=== PATIENT | female | born 1945 | race Caucasian/White ===

== ENCOUNTER 2020-09-22 06:50 | Day surgery (SDC) | payer MEDICARE, OTHER ==
[~2020-09-22 06:50] MED LIST: Lactated Ringers 1,000 ML IV PRN; Sodium Chloride 0.9% 10 ML Syringe FLUSH PRN
[2020-09-22] MEDS ORDERED: fentaNYL 100 MCG/2 ML SDV IV ONE (06:51)
[2020-09-22] MEDS ORDERED: Midazolam 1 MG/ML 2 ML SDV IV ONE (06:51)
[2020-09-22] MEDS ORDERED: acetaZOLAMIDE 500 MG Cap.ER PO ONE (09:00)
--- NOTE | 2020-09-22 14:21 | OR ---
DATE OF OPERATION: 09/22/2020 SURGEON: Pam Jefferson MD PREOPERATIVE DIAGNOSIS: Visually significant cataract, right eye. POSTOPERATIVE DIAGNOSIS: Visually significant cataract, right eye. PROCEDURES PERFORMED: Phacoemulsification with intraocular lens placement, right eye. ASSISTANTS: None. ANESTHESIA: Local with sedation. COMPLICATIONS: None. BLOOD LOSS: None. IMPLANTS: An Bowen ACU0T0, 16.0 diopter lens, serial number [id number] implanted. CDE: 15.91. DESCRIPTION OF PROCEDURE: After risks and benefits were reviewed with the patient, consent was obtained in the preoperative area, and the operative eye was marked with a surgical pen. In the preoperative area, a pledget was used to dilate the pupil consisting of a mixture of phenylephrine 10%, cyclopentolate 2%, moxifloxacin 0.5%, and bupivacaine 0.75%. The patient was taken to the operating room, where a time-out was performed, and the patient was placed under monitored anesthesia care. Topical tetracaine was used for anesthesia. The operative eye was prepped and draped for ophthalmic surgery, and the microscope was brought into position and focused. A paracentesis incision was made, followed by injection of preservative-free 1% lidocaine into the anterior chamber, followed by injection of Viscoat into the anterior chamber. A microkeratome blade was used to make a corneal limbal incision temporally. A cystotome was used to make the beginning of the capsulorrhexis, which was carried around 360 degrees in a curvilinear fashion using Utrata forceps. A Gonzalez cannula with BSS was used to hydrodissect and hydrodelineate the nucleus. The nucleus was removed in a divide and conquer manner using phacoemulsification. Irrigation and aspiration were used to remove the remaining cortical material. Provisc was used to inflate the capsular bag, and a pre-loaded Bowen ACU0T0, 16.0 diopter lens, serial number [id number] was injected into the capsular bag. A Sinskey hook was used to position and center the lens. Next, irrigation and aspiration was used to remove any remaining viscoelastic and cortical material from the anterior chamber. BSS on a cannula was used to inflate the anterior chamber and hydrate the wound. The wound was checked and found to be watertight. 1 mg of Moxifloxacin was injected into the anterior chamber. Drapes were removed and the eye was cleaned. A drop of brimonidine 0.2% and a drop of TobraDex was placed. The eye was shielded, and the patient was taken to the recovery room in stable condition. /[id number] KRISTY/MEÑO
== END 2020-09-22 09:35 | disposition home or self-care (01) ==
LOC: FB.SDS 06:50
PROVIDERS: ATTEND Ophthalmology
DX: H25.13 Age-related nuclear cataract, bilateral (principal); H02.831 Dermatochalasis of right upper eyelid; H02.834 Dermatochalasis of left upper eyelid; H02.88A Meibomian gland dysfunction right eye, upper and lower eyelids; H02.88B Meibomian gland dysfunction left eye, upper and lower eyelids; H52.13 Myopia, bilateral; K21.9 Gastro-esophageal reflux disease without esophagitis; Z90.49 Acquired absence of other specified parts of digestive tract; Z79.899 Other long term (current) drug therapy; Z98.890 Other specified postprocedural states; Z79.82 Long term (current) use of aspirin
CPT/HCPCS: 00142-QZ; A9270-GY; J2250; J3010; V2632

== ENCOUNTER 2020-10-06 06:58 | Day surgery (SDC) | payer MEDICARE, OTHER ==
[2020-10-06] MEDS ORDERED: fentaNYL 100 MCG/2 ML SDV IV ONE (06:59)
[2020-10-06] MEDS ORDERED: Midazolam 1 MG/ML 2 ML SDV IV ONE (06:59)
[2020-10-06] MEDS ORDERED: Lactated Ringers 1,000 ML IV PRN (07:30)
[2020-10-06] MEDS ORDERED: Sodium Chloride 0.9% 10 ML Syringe FLUSH PRN (07:30)
[2020-10-06] MEDS ORDERED: acetaZOLAMIDE 500 MG Cap.ER PO ONE (09:30)
--- NOTE | 2020-10-06 10:40 | OR ---
DATE OF OPERATION: 10/06/2020 SURGEON: Pam Jefferson MD PREOPERATIVE DIAGNOSIS: Visually significant cataract, left eye. POSTOPERATIVE DIAGNOSIS: Visually significant cataract, left eye. PROCEDURES PERFORMED: Phacoemulsification with intraocular lens placement, left eye. ASSISTANTS: None. ANESTHESIA: Local with sedation. COMPLICATIONS: None. BLOOD LOSS: None. IMPLANTS: Bowen ACU0T0, 17.0 diopter lens, serial number [id number] implanted. CDE: 9.74. DESCRIPTION OF PROCEDURE: After risks and benefits were reviewed with the patient, consent was obtained in the preoperative area, and the operative eye was marked with a surgical pen. In the preoperative area, a pledget was used to dilate the pupil consisting of a mixture of phenylephrine 10%, cyclopentolate 2%, moxifloxacin 0.5%, and bupivacaine 0.75%. The patient was taken to the operating room, where a time-out was performed, and the patient was placed under monitored anesthesia care. Topical tetracaine was used for anesthesia. The operative eye was prepped and draped for ophthalmic surgery, and the microscope was brought into position and focused. A paracentesis incision was made, followed by injection of preservative-free 1% lidocaine into the anterior chamber, followed by injection of Viscoat into the anterior chamber. A microkeratome blade was used to make a corneal limbal incision temporally. A cystotome was used to make the beginning of the capsulorrhexis, which was carried around 360 degrees in a curvilinear fashion using Utrata forceps. A Gonzalez cannula with BSS was used to hydrodissect and hydrodelineate the nucleus. The nucleus was removed in a divide and conquer manner using phacoemulsification. Irrigation and aspiration were used to remove the remaining cortical material. Provisc was used to inflate the capsular bag, and a pre-loaded Bowen ACU0T0, 17.0 diopter lens, serial number [id number] was injected into the capsular bag. A Sinskey hook was used to position and center the lens. Next, irrigation and aspiration was used to remove any remaining viscoelastic and cortical material from the anterior chamber. BSS on a cannula was used to inflate the anterior chamber and hydrate the wound. The wound was checked and found to be watertight. 1 mg of Moxifloxacin was injected into the anterior chamber. Drapes were removed and the eye was cleaned. A drop of brimonidine 0.2% and a drop of TobraDex was placed. The eye was shielded, and the patient was taken to the recovery room in stable condition. /[id number] KRISTY/MEÑO
== END 2020-10-06 10:15 | disposition home or self-care (01) ==
LOC: FB.SDS 06:58
PROVIDERS: ATTEND Ophthalmology
DX: H25.13 Age-related nuclear cataract, bilateral (principal); H02.831 Dermatochalasis of right upper eyelid; H02.834 Dermatochalasis of left upper eyelid; H02.88A Meibomian gland dysfunction right eye, upper and lower eyelids; H02.88B Meibomian gland dysfunction left eye, upper and lower eyelids; H52.13 Myopia, bilateral; K21.9 Gastro-esophageal reflux disease without esophagitis; Z90.49 Acquired absence of other specified parts of digestive tract; Z98.890 Other specified postprocedural states; Z79.899 Other long term (current) drug therapy; Z79.82 Long term (current) use of aspirin
CPT/HCPCS: 00142-QZ; A9270-GY; J2250; J3010; V2632

== ENCOUNTER 2021-02-02 13:56 | Emergency (ER) | payer MEDICARE, OTHER ==
--- NOTE | 2021-02-02 14:55 | EDM.PDOC ---
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, he does shoe repair - Related Data Allergies Allergy/AdvReac Type Severity Reaction Status Date / Time No Known Allergies Allergy Verified 10/06/20 07:38 Home Meds: Home Meds Ascorbate Calcium [Vitamin C] 500 mg PO DAILY 09/21/20 [History] Aspirin [Adult Low Dose Aspirin EC] 81 mg PO DAILY 09/21/20 [History] Glucos Sul 2Kcl/MSM/Chond/C/Mn [Glucosamine Chondroitin Cap] 1 each PO DAILY 09/21/20 [History] Multivitamin with Minerals [Multiple Vitamin] 1 tab PO DAILY 09/21/20 [History] [place]-3/DHA/Epa/Fish Oil [[place]-3 Fish Oil 1,000 MG Sfgl] 1,000 mg PO DAILY 09/21/20 [History] Omeprazole 20 mg PO ACBREAKFAST 09/21/20 [History] traMADol HCl [Tramadol HCl] 100 mg PO Q6H PRN #12 tablet 02/02/21 [Rx] Past Medical History HEENT History: Reports: Cataract, Impaired Vision Cardiovascular History: Reports: None Respiratory History: Reports: None Gastrointestinal History: Reports: GERD Genitourinary History: Reports: Urinary Incontinence Musculoskeletal History: Reports: Osteoarthritis Neurological History: Reports: None Psychiatric History: Reports: None Endocrine/Metabolic History: Reports: None Hematologic History: Reports: None Immunologic History: Reports: None Oncologic (Cancer) History: Reports: None Dermatologic History: Reports: None - Past Surgical History HEENT Surgical History: Reports: Cataract Surgery GI Surgical History: Reports: Appendectomy Female Surgical History: Reports: Breast Biopsy Social & Family History - Caffeine Use Caffeine Use: Reports: Coffee, Soda Review of Systems - Review of Systems Review Of Systems: See Below Constitutional: Reports: No Symptoms Eyes: Reports: No Symptoms Ears: Reports: No Symptoms Nose: Reports: No Symptoms Mouth/Throat: Reports: No Symptoms Respiratory: Reports: No Symptoms Cardiovascular: Reports: No Symptoms GI/Abdominal: Reports: No Symptoms Genitourinary: Reports: No Symptoms Musculoskeletal: Reports: Shoulder Pain Skin: Reports: No Symptoms Neurological: Reports: No Symptoms Psychiatric: Reports: No Symptoms ED EXAM, GENERAL - Physical Exam Exam: See Below Exam Limited By: No Limitations General Appearance: Alert, WD/WN, No Apparent Distress, Other (pleasant, alert) Eye Exam: Bilateral Eye: EOMI, PERRL Ears: Hearing Grossly Normal Throat/Mouth: Normal Inspection Head: Atraumatic, Normocephalic Neck: Normal Inspection, Supple, Non-Tender Respiratory/Chest: No Respiratory Distress, Lungs Clear Cardiovascular: Regular Rate, Rhythm, No Murmur Extremities: Other (L shoulder rotated forward, no abrasion/swell/ecchymosis, 1- 2+ tender over clavicle, nontender at GH joint line or humeral head) Course - Orders/Labs/Meds Orders: Active Orders 24 hr Category Date Time Status Shoulder Comp Lt [CR] Stat Exams 02/02/21 14:03 Taken - Re-Assessments/Exams Free Text/Narrative Re-Assessment/Exam: 02/02/21 15:01 XR L shoulder on prelim ED view with fx of distal clavicle in 2 pieces with shortening and overlap bone, no dislocation, no AC separation Departure - Departure Time of Disposition: 14:49 Disposition: Home, Self-Care 01 Condition: Good Clinical Impression: Fracture of left clavicle - Discharge Information *PRESCRIPTION DRUG MONITORING PROGRAM REVIEWED*: Not Applicable *COPY OF PRESCRIPTION DRUG MONITORING REPORT IN PATIENT DANIEL: Not Applicable Prescriptions: traMADol HCl [Tramadol HCl] 100 mg PO Q6H PRN #12 tablet PRN Reason: Pain Instructions: Clavicle Fracture, Clavicle Fracture Rehab-SportsMed Additional Instructions: Take ibuprofen 200 mg 2 tabs and acetaminophen 500 mg 2 tabs 4 times a day for 2 days, longer if needed. Take tramadol 100 mg 1 tab every 6 hours as needed for pain. No alcohol. Use ice for 10 minutes every 2 hours for 2 days while awake, longer if needed. Use figure-of-8 splint both day and night for 6-8 weeks or until you receive other instructions from your PCP. See your PCP in 1 week for further evaluation and recommendations, earlier if there are additional concerns. - My Orders Last 24 Hours: My Active Orders 02/02/21 14:03 Shoulder Comp Lt [CR] Stat - Assessment/Plan Last 24 Hours: My Active Orders 02/02/21 14:03 Shoulder Comp Lt [CR] Stat
[2021-02-02] MEDS ORDERED: traMADol 50 MG Tab PO ONE (15:17)
[2021-02-02] MEDS ORDERED: Acetaminophen 500 MG Tab PO ONE (15:17)
[2021-02-02] MEDS ORDERED: Ketorolac 30 MG/ML SDV IM ONE (15:17)
--- NOTE | 2021-02-02 16:43 | CR ---
LEFT SHOULDER INDICATION: Fell 3-1/2 feet onto left shoulder, anterior pain, fell from back of truck to side. FINDINGS: Four views of the left shoulder revealed an oblique fracture through the distal third of the shaft of the clavicle with overriding width of the shaft of the proximal fracture fragment and with overriding of the fracture fragments of approximately 33 mm. The AC and glenohumeral joints appear to be intact with some minimal degenerative change at the glenohumeral joint. There appear to be fractures at the anterolateral aspects of the third and fourth left ribs with slight offset at the fourth rib fracture site. These appear to be acute. A probable granuloma is noted in the upper mid lung field on the left with no definite contusion or pneumothorax identified. IMPRESSION: 1. Clavicle fracture with deformity - severe overriding. 2. Rib fractures on the left #3 and 4. 3. Mild degenerative changes glenohumeral joint. 4. Probable granuloma in the left upper middle lung field. Report was called to Dr. Luna at 1550 hours 02/02/21. [facility]ITALClarence
== END 2021-02-02 16:00 | disposition home or self-care (01) ==
LOC: FB.ED 13:56
DX: S42.032A Displaced fracture of lateral end of left clavicle, initial encounter for closed fracture (principal); S42.022A Displaced fracture of shaft of left clavicle, initial encounter for closed fracture; K21.9 Gastro-esophageal reflux disease without esophagitis; M19.90 Unspecified osteoarthritis, unspecified site; Z79.82 Long term (current) use of aspirin; Z79.899 Other long term (current) drug therapy; W11.XXXA Fall on and from ladder, initial encounter
CPT/HCPCS: 73030-LT; 96372; 99283-25; A9270-GY; J1885

== ENCOUNTER 2024-02-02 06:59 | Day surgery (SDC) | payer MEDICARE, OTHER ==
[2024-02-02] MEDS ORDERED: Lidocaine 2% 100 MG/5 ML Syringe IVPUSH ONE (07:00)
[2024-02-02] MEDS ORDERED: Sodium Chloride 0.9% 10 ML Syringe FLUSH PRN (07:00)
[2024-02-02] MEDS ORDERED: Propofol 200 MG/20 ML SDV IV ONE (07:00)
[2024-02-02] MEDS: Lactated Ringers 1,000 ML IV SCH (08:05)
[2024-02-02] MEDS: Simethicone Drops 40 MG/0.6 ML 30 ML Bottle ONE (08:17)
== END 2024-02-02 09:25 | disposition home or self-care (01) ==
LOC: MERGE 06:59 → FB.SDS 06:59
PROVIDERS: ATTEND Surgery
DX: K29.80 Duodenitis without bleeding (principal); K44.9 Diaphragmatic hernia without obstruction or gangrene; K21.9 Gastro-esophageal reflux disease without esophagitis; Z79.899 Other long term (current) drug therapy
CPT/HCPCS: 88305; A9270-GY; J2704; J7120